=== PATIENT | male | born 1995 | race African-American/Black ===

== ENCOUNTER 2019-06-21 13:41 | Emergency (ER) | payer BC ==
[~2019-06-21] VITALS: Ht 188 cm; Wt 77.1 kg
[2019-06-21 14:43] VITALS: BP 115/82
== END 2019-06-21 15:30 | disposition home or self-care (01) ==
LOC: ER 13:52
DX: J06.9 Acute upper respiratory infection, unspecified (principal); F17.200 Nicotine dependence, unspecified, uncomplicated